=== PATIENT | female | born 1990 ===

== ENCOUNTER → 2016-06-05 | Outpatient (REF) | LOC: WSOH 11:00 | DX: Z02.89 Encounter for other administrative examinations (principal) ==

== ENCOUNTER → 2016-08-05 | Outpatient (REF) | LOC: WSOH 11:52 | DX: Z02.89 Encounter for other administrative examinations (principal) ==

== ENCOUNTER → 2016-11-17 | Outpatient (REF) | LOC: WSOH 12:00 | DX: Z02.89 Encounter for other administrative examinations (principal) ==

== ENCOUNTER → 2017-01-27 | Outpatient (REF) | LOC: WSOH 17:00 | DX: Z02.89 Encounter for other administrative examinations (principal) ==

== ENCOUNTER → 2017-02-23 | Outpatient (REF) | LOC: WSOH 09:27 | DX: Z02.89 Encounter for other administrative examinations (principal) ==